=== PATIENT | female | born 1960 | race Caucasian/White ===

== ENCOUNTER 2016-12-07 21:33 | Inpatient (IN) | payer OTHER ==
[~2016-12-07] VITALS: Ht 170.2 cm; Wt 72.7 kg
[2016-12-07 21:35] VITALS: BP 125/74; PULSE 63; RESP 16; O2SAT 100
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
[2016-12-07 21:43] LABS: BASOPHILS % (AUTO) 0.3 % (0-3); EOSINOPHILS % (AUTO) 7.8 % (0-5); MONOCYTES % (AUTO) 8.1 % (4-12); Mean Corpuscular Hemoglobin 29.3 pg (27.0-35.0); Mean Corpuscular Volume 90.8 fL (81-100); NEUTROPHILS % (AUTO) 47.1 % (40-74); Platelet Count 276 bil/L (150-400)
[2016-12-07 22:00] LABS: INR 0.94 ratio
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
[2016-12-07 22:10] LABS: Magnesium 2.1 mg/dL (1.6-2.6)
[2016-12-07 22:36] LABS: Lipase 38 U/L (13-60)
[2016-12-07] MEDS: HYDROmorphone 1 mg/mL Inj IVPUSH PRN (23:43)
[2016-12-08] VITALS (13 sets, daily range): BP systolic 111–144; BP diastolic 55–85; PULSE 66–94; RESP 12–20; O2SAT 94–100
[2016-12-08] MEDS ORDERED: Albuterol HFA 60 Puff 8 Gm Inhaler INHALATION PRN (00:45)
[2016-12-08] MEDS ORDERED: Ondansetron 2 mg/mL 2 mL Inj IVPUSH PRN ×3 (00:45→17:25)
[2016-12-08] MEDS ORDERED: TdaP Vaccine 0.5 mL Inj IM ONE (00:50)
[2016-12-08] MEDS ORDERED: Albuterol HFA 200 Puff Inhaler (Vent Pts Only) INHALATION PRN (00:51)
[2016-12-08] MEDS: Lactated Ringer's 1,000 ML IV SCH ×3 (01:24→20:45)
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
--- NOTE | 2016-12-08 04:15 | NUR ---
Arrival to Room 1022 Patient arrived to room 1022 at 0102 via [facility] accompanied by MARIBEL Mcdermott from the ED and parents. Patient appears drowsy but easily aroused. Patient states pain at a 7/10 on pain scale. LR started at 100ml/hr. VSS. Patient informed that is out of surgery and will be transported to [facility] [place]. Assessment completed. No home meds to reconcile. Call light within reach. Care continues.
[2016-12-08] MEDS: HYDROmorphone 1 mg/mL Inj IVPUSH PRN ×2 (04:32→08:01)
[2016-12-08 04:50] LABS: APPEARANCE,URINE SLIGHTLY CLOUDY (CLEAR,HAZY); COLOR,URINE YELLOW (YELLOW); OCCULT BLOOD,URINE NEGATIVE (NEGATIVE); UROBILINOGEN,URINE NORMAL (NORMAL)
[2016-12-08] MEDS ORDERED: Albuterol 2.5 mg/3 mL Inhalation Solution NEB PRN (08:10)
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
[2016-12-08] MEDS ORDERED: Propofol 10,000 mCg/mL 20 mL Inj ONE (10:46)
[2016-12-08] MEDS ORDERED: fentaNYL-PF 50 mCg/mL 2 mL Inj ONE (10:46)
--- NOTE | 2016-12-08 12:10 | PCM.HPANE ---
Patient Data Surgeon Admitting Provider:Magdiel Madison DO Attending Provider:Magdiel Madison DO Primary Care Physician:[facility] Other Provider:Grayson Fitch Anesthesia Reason for Visit Fracture Left Tib Fib Ht/WT & BMI Height (Feet): 5 Height (Inches): 7.00 Weight (Kilograms): 72.720 Body Mass Index 25.16 Allergies Coded Allergies: No Known Allergies (Unverified , 12/08/16) Past Anesthesia History Anesthesia History: Denies:: Anesthesia Reactions Diabetes History Hx Diabetes?: No History History of ENT Problems?: No Denture Type: None Teeth Condition: Within Normal Limits Hx of Heart Problems?: No Cardiovascular History: Denies:: Cardiac Surgery Chest Pain Congestive Heart Failure Edema Heart Murmur Hypertension Irregular Heartbeat Pacemaker Thrombophlebitis Hx of Respiratory Problem?: Yes Respiratory History: Positive for:: Asthma Dyspnea Denies:: COPD Chest Surgery Emphysema Hemoptysis Pneumonia Tuberculosis Hx Neurologic Problems?: No Neurological History: Positive for:: Dizziness (tonight) Headaches Denies:: Alzheimer's Disease CVA Dementia Parkinson's Disease Seizures Hx of GI Problems?: No Gastrointestinal History: Denies:: Cirrhosis Diverticulitis Gall Bladder Disease Gastroesphageal Reflux Gastrointestinal Bleeding Heartburn Hepatitis Hiatal Hernia Liver Disease Rectal Bleeding Hx of Problems?: No Genitourinary History: Positive for:: Urinary Tract Infection Denies:: HX of Hemodialysis Kidney Stones HX of Peritoneal Dialysis: No Female Hx: Denies:: Currently Endometriosis Pelvic Inflammatory Problems with Breasts? Hx Musculoskeletal Problems?: No Musculoskeletal History: Positive for:: Musculoskeletal Trauma (12/07/16) Denies:: Back Injury Joint Replacement Hx of Psycho/Social Problems?: No Psycho Social History: Denies:: Anxiety Bipolar Disorder Hx Depression Suicide Attempt Hx Surgeries?: No Hx Any Other Health Problems?: No Other History: Positive for:: Hospitalization Denies:: Cancer Thyroid Disease History Blood Transfusions: Positive for:: Accept Blood Products? Denies:: Blood Transfuse Reaction Blood Transfusions Hx Diabetes: No Hx Alcohol Use: YesAlcoholic Drinks Per Day: 3-4 /weelHx Substance Use: No Smoking Status: Unknown if Ever Smoker Have You Smoked inLast 12 mo: No Stop/Bang Treated for Sleep Apnea?: No Do You Have a CPAP Machine?: No S-Snoring: Do You Snore Loudly: Yes T-Tired: feel tired, fatigued: Yes O-Obsered: Observed not breath: No P-Blood Pressure: treated: No B- Body Mass Index > 35 kg/m2: No A- Age over 50: Yes N- Neck Large Circumference: No G- Gender Male: No TIANNA Total Score: 2 TIANNA Category 1: Yes Risk Assessment Category Category 1A: Patient has history of documented sleep apnea, and HAS NOT received any narcotic, sedative or anesthesia administration during this stay. Category 1B: Patient has history of documented sleep apnea, and HAS received any narcotic , sedative or anesthesia administration during this stay Category 2: Patient has SUSPECTED Obstructive Sleep Apnea, and HAS received any narcotic , sedative or anesthesia administration during this stay. Category 3: Patient has SUSPECTED Obstructive Sleep Apnea and HAS NOT received narcotic, sedative or anesthesia administration during this stay. Category 4: Outpatient in Procedural Areas with known sleep apnea or who screen positive for High Risk via the STOP/BANG questionnaire. Exam Exam Vital Signs Vital Signs Date Time Temp Pulse Resp B/P Pulse Ox O2 Delivery O2 Flow Rate FiO2 12/08/16 11:41 36.4 18 113/71 97 Room Air 12/08/16 09:25 80 16 94 Room Air 12/08/16 05:22 36.6 71 18 117/67 100 Room Air General Appearance: Alert, Oriented X3, Cooperative, No Acute Distress HEENT/AIRWAY: MP 2 Lungs: Clear to Auscultation, Normal Air Movement Heart: Exam Unremarkable, Regular Rate/Rhythm, No Murmurs/Rubs/Gallops Meds/Labs/Diagnostics Admission Meds Current Medications Lactated Ringer's (Lr) 1,000 ml @ 100 mls/hr Q10H IV Last administered on 12/08t 01:24; Start 12/08/16 at 00:45 Labs Test 12/07/16 21:35 12/07/16 22:03 12/08/16 04:30 White Blood Count 5.8th/mm3 (3.8-10.1) Red Blood Count 3.93mil/mm3 (3.90-5.20) Hemoglobin 11.5g/dL (12.0-15.6) Hematocrit 35.7% (35.0-46.0) Mean Corpuscular Volume 90.8fL (81-100) Mean Corpuscular Hemoglobin 29.3pg (27.0-35.0) Mean Corpuscular Hemoglobin Concent 32.2% (32.0-37.0) Red Cell Distribution Width 12.9% (12.3-15.4) Platelet Count 276bil/L (150-400) Neutrophils (%) (Auto) 47.1% (40-74) Lymphocytes (%) (Auto) 36.5% (14-46) Monocytes (%) (Auto) 8.1% (4-12) Eosinophils (%) (Auto) 7.8% (0-5) Basophils (%) (Auto) 0.3% (0-3) Prothrombin Time 10.0sec (8.1-12.5) Prothromb Time International Ratio 0.94ratio Activated Partial Thromboplast Time 23.3sec (22.8-33.0) Sodium Level 142mEq/L (134-144) Potassium Level 3.5mEq/L (3.5-5.2) Chloride Level 103mEq/L (97-108) Carbon Dioxide Level 26mmol/L (18-29) Blood Urea Nitrogen 20mg/dL (6-24) Creatinine 1.00mg/dL (0.57-1.00) Estimat Glomerular Filtration Rate 83mL/min (>59) Glucose Level 109mg/dL (60-99) Calcium Level 9.6mg/dL (8.5-10.1) Magnesium Level 2.1mg/dL (1.6-2.6) Total Bilirubin 0.6mg/dL (0.0-1.2) Aspartate Amino Transf (AST/SGOT) 28U/L (0-50) Alanine Aminotransferase (ALT/SGPT) 24U/L (0-32) Alkaline Phosphatase 45U/L (25-150) Total Protein 6.9g/dL (6.4-8.4) Albumin 4.2g/dL (3.4-5.0) Lipase 38U/L (13-60) Alcohols < 10mg/dL (0-10) Hold Rivero Top Tube Received (Received) Urine Color Yellow (YELLOW) Urine Appearance Slightly cloudy Urine pH 6.0 (5.0-8.0) Urine Specific [place] 1.022 (1.003-1.035) Urine Protein Negativemg/dL (NEG,TRACE) Urine Glucose (UA) Negativemg/dL (NEGATIVE) Urine Ketones Negativemg/dL (NEGATIVE) Urine Occult Blood Negative (NEGATIVE) Urine Nitrite Positive (NEGATIVE) Urine Bilirubin Negative (NEGATIVE) Urine Urobilinogen Normalmg/dL (NORMAL) Urine Leukocyte Esterase Negative (NEGATIVE) Urine RBC 0-2/hpf (0-2) Urine WBC 0-5/hpf (0-5) Urine Epithelial Cells Occasional/hpf (NONE-MOD) Urine Crystals None seen (NONE SEEN) Urine Bacteria Many/hpf (NONE-FEW) Urine Hyaline Casts None/lpf (NONE) Urine Granular Casts None seen (NONE SEEN) Urine Waxy Casts None seen (NONE SEEN) Urine Red Blood Cell Casts None seen (NONE SEEN) Urine White Blood Cell Casts None seen (NONE SEEN) Urine Mucus None seen (None Seen) Urine Trichomonas None seen (NONE SEEN) Urine Yeast None (NONE SEEN) Urinalysis Comment Starch Plan Impression Patient chart reviewed, patient interviewed and anesthestic plan with risks, benefits, and alternatives discussed, and informed consent obtained. NPO per Anesth. Guidelines: Yes ASA Physical Status: ASA2 Mod Systemic Disease Anesthetic Plan: GA, SAB Bene/Risks/Altern/Consents: Yes HP Complete Prior to Induction: Yes Caterina Martino MD December 08, 2016 12:10
[2016-12-08] MEDS ORDERED: Lactated Ringer's 1,000 ML IV ONE ×2 (13:00→13:45)
[2016-12-08] MEDS ORDERED: CeFAZolin Inj 2 gm / 50mL D5W IV ONE (13:23)
[2016-12-08] MEDS ORDERED: Lactated Ringer's 1,000 ML IV SCH (15:01)
[2016-12-08] MEDS ORDERED: Lactated Ringer's 500 ML IV PRN (15:01)
[2016-12-08] MEDS ORDERED: MetoCLOpramide 5 mg/mL 2 mL Inj IVPUSH PRN (15:05)
[2016-12-08] MEDS ORDERED: Phenylephrine 10,000 mCg/mL Inj IVPUSH PRN (15:05)
[2016-12-08] MEDS ORDERED: Atropine 0.4 mg/mL Inj IVPUSH PRN (15:05)
[2016-12-08] MEDS ORDERED: EPHEDrine Sulfate 50 mg/mL Inj IVPUSH PRN (15:05)
[2016-12-08] MEDS ORDERED: HYDROmorphone 1 mg/mL Inj IVPUSH PRN ×2 (15:05→18:00)
[2016-12-08] MEDS ORDERED: Dexamethasone 4 mg/mL Inj IVPUSH PRN (15:05)
[2016-12-08] MEDS ORDERED: fentaNYL-PF 50 mCg/mL 2 mL Inj IVPUSH PRN (15:05)
[2016-12-08] MEDS ORDERED: Labetalol 5 mg/mL 4 mL Inj IV PRN (15:05)
--- NOTE | 2016-12-08 17:21 | PCM.ANEP1 ---
Post Anesthesia PACU Phase 1 Assessment Vital Signs Vital Signs Date Time Temp Pulse Resp B/P Pulse Ox O2 Delivery O2 Flow Rate FiO2 12/08/16 17:16 36.5 92 15 132/69 97 Room Air 12/08/16 11:41 36.4 18 113/71 97 Room Air 12/08/16 09:25 80 16 94 Room Air Anesthetic Administered: SAB Level of Alertness: Awake, talking PHELPS's with Equal Strength: No Pain: No Pain Scale Score: 7 Nausea or Vomiting: No CV Function & Hydration Stable: No Airway Device: Lungs: Clear to Auscultation, Normal Air Movement Dermatome Level: T10 (Umbilicus) PACU Phase 2 Assessment Complications: No Follow up Care: No Patient Instructions Provided: N/A Caterina Martino MD December 08, 2016 17:21
[2016-12-08] MEDS ORDERED: Polyethylene Glycol (PEG) 17 Gm Powder PO PRN (17:25)
[2016-12-08] MEDS ORDERED: Sodium Biphos-Phos 133 mL Enema RECTAL PRN (17:25)
[2016-12-08] MEDS ORDERED: diphenhydrAMINE 25 mg Capsule PO PRN (17:25)
[2016-12-08] MEDS ORDERED: Magnesium Hydroxide 10 mL Oral Concentration PO PRN (17:25)
[2016-12-08] MEDS: 0.9% Sodium Chloride 1,000 ML IV SCH (18:27)
[2016-12-08] MEDS: hydrOXYzine Pamoate 25 mg Capsule PO PRN ×2 (18:52→23:03)
--- NOTE | 2016-12-08 19:03 | NUR ---
Post op note- Patient arrived to room from PACU at 1820. Awake and talking. Left leg in cast and dressing dry and intact. Patient has good capillary refill and sensation in toes. Patient complaining of pain. Medicated with IV Dilaudid and Vistaril. Cont. to monitor for pain relief.
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
[2016-12-08] MEDS: Senna-Docusate 8.6-50 mg Tablet PO SCH (20:48)
[2016-12-08] MEDS: oxyCODONE-Acetamin 5-325 mg Tablet PO PRN (23:04)
[2016-12-08] MEDS: CeFAZolin Inj 2 GM in IV Premix 1 EACH IV SCH (23:10)
[2016-12-08] MEDS: Sodium Chloride LOK Flush 10 mL Syringe IV SCH (23:33)
--- NOTE | 2016-12-08 23:50 | NUR ---
Pain On initial assessment, patient stated pain at a 10/10 on pain scale. Toradol 30mg IVP administered. Patient is able to wiggle toes. VSS. At 2300, patient requested something to eat. TV dinner brought in. Patient appears passive in mood. Call light within reach. Care continues.
[2016-12-09 01:05] VITALS: BP 111/72; PULSE 105; RESP 18; O2SAT 95
[2016-12-09] MEDS: 0.9% Sodium Chloride 1,000 ML IV SCH ×3 (03:23→23:05)
[2016-12-09] MEDS: CeFAZolin Inj 2 GM in IV Premix 1 EACH IV SCH (05:49)
[2016-12-09 06:20] VITALS: BP 116/74; PULSE 90; RESP 16; O2SAT 98
[2016-12-09] MEDS: hydrOXYzine Pamoate 25 mg Capsule PO PRN (06:23)
[2016-12-09] MEDS: oxyCODONE-Acetamin 5-325 mg Tablet PO PRN ×4 (06:24→18:24)
[2016-12-09] MEDS: Lactated Ringer's 1,000 ML IV SCH ×2 (06:27→16:45)
[2016-12-09 06:48] LABS: BASOPHILS % (AUTO) 0.4 % (0-3); EOSINOPHILS % (AUTO) 3.4 % (0-5); MONOCYTES % (AUTO) 11.3 % (4-12); Mean Corpuscular Hemoglobin 29.6 pg (27.0-35.0); Mean Corpuscular Volume 91.9 fL (81-100); NEUTROPHILS % (AUTO) 61.7 % (40-74); Platelet Count 195 bil/L (150-400)
[2016-12-09] MEDS: Sodium Chloride LOK Flush 10 mL Syringe IV SCH ×3 (08:48→23:34)
[2016-12-09] MEDS: Senna-Docusate 8.6-50 mg Tablet PO SCH ×2 (08:53→19:43)
[2016-12-09 09:07] VITALS: BP 129/71; PULSE 104; RESP 20; O2SAT 94
--- NOTE | 2016-12-09 10:22 | PCM.PNORTH ---
Subjective Date of Service: December 09, 2016 Visit Information: Reason for Visit Fracture Left Tib Fib Surgery/Surgery Date Post-Op Day # 1 Date of Admission: December 07, 2016 at 23:14 Hospital Day # Subjective Patient seems somnolent and is not very talkative. She states she is having pain. She states she has been elevating her leg "and it still hurts." She denies numbness or tingling. Physical therapy states she had difficulty with ambulation due to right shoulder and clavicle pain. She states it is the limiting factor in her ambulation with crutches at this time. Postop General: No Complaints, No Shortness of Breath, No Chest Pain, Good Appetite Pain Management: PO, IV Push Objective Exam Objective Patient laying in bed with leg elevated. Patient seems very somnolent and is not actively participating in conversation. Vital Signs and I/O Vital Sign - Last Date Time Temp Pulse Resp B/P Pulse Ox O2 Delivery O2 Flow Rate FiO2 12/09/16 09:07 37.2 104 20 129/71 94 Room Air Intake and Output 12/08/16 12/08/16 12/09/16 Cumulative From/Thru 15:00 23:00 07:00 12/07/16 21:35 - 12/09/16 06:47 Intake Total 1400 ml 808 ml 1837 ml 4508 ml Output Total 960 ml 625 ml 1985 ml Balance 1400 ml -152 ml 1212 ml 2523 ml Intake Oral 0 ml 600 ml 600 ml IV Total 1400 ml 808 ml 1237 ml 3908 ml Output Urine Total 710 ml 625 ml 1735 ml Estimated Blood Loss 250 ml 250 ml # Voids 1 # Bowel Movements 0 Lab & Micro Results Laboratory Tests Test 12/09/16 06:25 White Blood Count 7.6th/mm3 (3.8-10.1) Red Blood Count 3.21mil/mm3 (3.90-5.20) Hemoglobin 9.5g/dL (12.0-15.6) Hematocrit 29.5% (35.0-46.0) Mean Corpuscular Volume 91.9fL (81-100) Mean Corpuscular Hemoglobin 29.6pg (27.0-35.0) Mean Corpuscular Hemoglobin Concent 32.2% (32.0-37.0) Red Cell Distribution Width 12.9% (12.3-15.4) Platelet Count 195bil/L (150-400) Neutrophils (%) (Auto) 61.7% (40-74) Lymphocytes (%) (Auto) 22.3% (14-46) Monocytes (%) (Auto) 11.3% (4-12) Eosinophils (%) (Auto) 3.4% (0-5) Basophils (%) (Auto) 0.4% (0-3) Sodium Level 140mEq/L (134-144) Potassium Level 4.5mEq/L (3.5-5.2) Chloride Level 102mEq/L (97-108) Carbon Dioxide Level 23mmol/L (18-29) Blood Urea Nitrogen 14mg/dL (6-24) Creatinine 0.76mg/dL (0.57-1.00) Estimat Glomerular Filtration Rate 114mL/min (>59) Glucose Level 112mg/dL (60-99) Calcium Level 8.2mg/dL (8.5-10.1) Result Diagram: 12/09/1662412/09/16624 General Appearance: Alert, Oriented X3, Cooperative, No Acute Distress Extremities: Warm Postop Sensory Motor: Distal Motor Intact, Movement in Toes, Distal Sensation Intact, NVI Distally SURGICAL WOUND : Wound Location/Description Splint clean, dry and intact. Incision General Appearance: No Direct Observation Activity: Ambulate with PT (NWB c LLE; utilize crutches) Assessment & Plan Impression POD#1 1. Left distal tibia open reduction and internal fixation. 2. Left midshaft tibia intramedullary nail. 3. Left distal fibula open reduction and internal fixation. Problems: Plan Patient seems very out of it and seems to be struggling to stay awake. I recommend use of oral pain medications - preferably Tylenol instead of non- narcotic however patient may have a lot of pain post-operatively due to the complexity of the fracture. Leg should be elevate frequently and ice should be applied often as she will have a lot of post-operative swelling. Weightbearing: Nonweightbearing on the left lower extremity; utilizing crutches or walker DVT prophylaxis: Lovenox 40 mg daily 2 weeks followed by aspirin 325 mg twice a day 4 weeks, for a total of 6 weeks of DVT prophylaxis Physical therapy for transfers, progressive ambulation, strengthening Wound care: Splint should remain on and intact all times. Do not remove splint. Patient will be transitioned to a cast at 2 weeks Analgesia: Oral pain management Discharge plan: Discharge home in 1-2 days; predict patient will likely need home health services but will reassess tomorrow. Follow-up plan: In 2 weeks at [facility] with HAKAN for wound check and at [address] Madison with x-rays VTE Prophylaxis: Sub-Q Enoxaparin Leeanne Smith PA-C December 09, 2016 10:22
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
--- NOTE | 2016-12-09 14:04 | DRSVH ---
PROCEDURE: X-RAY RIGHT SHOULDER, MINIMUM TWO VIEWS ([id number]) INDICATIONS: R shoulder pain TECHNIQUE: 3 views of the shoulder were acquired. COMPARISON: [facility], CR, XR CLAVICLE COMP RT, 12/09/2016, 10:53. FINDINGS: Bones: No fractures or dislocations. No suspicious bony lesions. Visualized ribs appear intact. Soft tissues: No suspicious soft tissue calcifications. Mild soft tissue swelling. IMPRESSION: Minimal lateral soft tissue swelling otherwise normal right shoulder. Dictated by: Remigio Sethi RRA Interpreted: Akilah Tong MD on 12/09/2016 at 14:04 Transcribed by: LUIS on 12/09/2016 at 14:04 Approved by: Akilah Tong MD, PhD on 12/09/2016 at 14:52
--- NOTE | 2016-12-09 14:04 | DRSVH ---
PROCEDURE: X-RAY RIGHT CLAVICLE, COMPLETE ([id number]) INDICATIONS: R shoulder pain TECHNIQUE: 2 views of the clavicle were acquired. COMPARISON: None. FINDINGS: Bones: No fractures or dislocations. No suspicious bony lesions. Soft tissues: No suspicious soft tissue calcifications. Mild lateral soft tissue swelling. IMPRESSION: Minimal lateral soft tissue swelling otherwise normal exam. Dictated by: Remigio Sethi [facility] Interpreted: Akilah Tong MD on 12/09/2016 at 14:02 Transcribed by: LUIS on 12/09/2016 at 14:03 Approved by: Akilah Tong MD, PhD on 12/09/2016 at 14:52
--- NOTE | 2016-12-09 15:04 | NUR ---
Evaluation completed. Please go to "Notes" then click on "Assessments and Notes" (bottom left corner of screen). Then select appropriate discipline tab on top of screen.
[2016-12-09 19:12] VITALS: BP 117/68; PULSE 96; RESP 18; O2SAT 94
[2016-12-09 21:00] VITALS: BP 95/59; PULSE 97; RESP 16; O2SAT 94
[2016-12-10 00:45] VITALS: BP 118/74; PULSE 88; RESP 16; O2SAT 99
[2016-12-10 00:50] VITALS: PULSE 80; RESP 16; O2SAT 96
[2016-12-10] MEDS: Lactated Ringer's 1,000 ML IV SCH ×2 (02:45→09:03)
[2016-12-10] MEDS: hydrOXYzine Pamoate 25 mg Capsule PO PRN ×3 (02:49→13:18)
[2016-12-10] MEDS: oxyCODONE-Acetamin 5-325 mg Tablet PO PRN ×3 (02:51→13:18)
--- NOTE | 2016-12-10 03:01 | NUR ---
Pain/ BM Pt. was sleeping throughout shift. Until 229, when ambulating to bathroom pt. reported pain luiz severely. 2 tab Percocet PO and 1 tab Vistaril PO given. Pt. reports having an extra large BM while on toilet. Will continue to monitor.
[2016-12-10 05:20] VITALS: BP 102/63; PULSE 99; RESP 16; O2SAT 93
[2016-12-10 07:42] VITALS: PULSE 95; RESP 16; O2SAT 95
[2016-12-10] MEDS: Sodium Chloride LOK Flush 10 mL Syringe IV SCH (08:06)
[2016-12-10] MEDS: Senna-Docusate 8.6-50 mg Tablet PO SCH (08:30)
[2016-12-10] MEDS: 0.9% Sodium Chloride 1,000 ML IV SCH (09:03)
--- NOTE | 2016-12-10 09:53 | PCM.PNORTH ---
Subjective Date of Service: December 10, 2016 Visit Information: Reason for Visit Fracture Left Tib Fib Surgery/Surgery Date Post-Op Day # Date of Admission: December 07, 2016 at 23:14 Hospital Day # Subjective Status post day #2 left distal tibia ORIF, mid shaft IM nail left tibia, distal fibula ORIF on the left. Patient states that she is doing well and ready to go home. She states her pain is well-controlled and she has good help on. States she did really well with physical therapy and would like to have some crutches to go home with. Postop General: No Complaints, No Shortness of Breath, No Chest Pain, Good Appetite Pain Management: PO, IV Push Objective Exam Objective Patient is alert and oriented 3. Answering questions appropriately. Patient is sitting up in the bed and not in acute distress today. Dressing and splint are clean dry and intact. Calf is soft and nontender as far as can be palpated on the superior portion. Sensation and pulses intact, patient able to wiggle toes. Vital Signs and I/O Vital Sign - Last Date Time Temp Pulse Resp B/P Pulse Ox O2 Delivery O2 Flow Rate FiO2 12/10/16 07:42 95 16 95 Room Air 12/10/16 05:20 37.3 102/63 Intake and Output 12/09/16 12/09/16 12/10/16 Cumulative From/Thru 15:00 23:00 07:00 12/07/16 21:35 - 12/10/16 06:08 Intake Total 850 ml 1000 ml 6358 ml Output Total 800 ml 1500 ml 4285 ml Balance 50 ml -500 ml 2073 ml Intake Oral 850 ml 1000 ml 2450 ml IV Total 3908 ml Output Urine Total 800 ml 1500 ml 4035 ml Estimated Blood Loss 250 ml # Voids 1 # Bowel Movements 1 1 Result Diagram: 12/09/16 0625 12/09/16 0625 SURGICAL WOUND : Incision General Appearance: No Direct Observation Activity: Ambulate with PT (NWB c LLE; utilize crutches) Assessment & Plan Impression Status post day #2 left tibia fracture ORIF via nail and distal tibia ORIF with distal fibula ORIF as well. Patient stable and ready to be discharged to home. Problems: Plan Patient will remain nonweightbearing on the left lower leg. Discharged with crutches that she will use for the next 6 weeks. DVT prophylaxis: Lovenox 40 mg daily 2 weeks followed by aspirin 325 mg twice a day 4 weeks, for a total of 6 weeks of DVT prophylaxis Wound care: Splint should remain on and intact all times. Do not remove splint , keep clean and dry. Patient will be transitioned to a cast at 2 weeks Analgesia: Patient will be discharged with Vistaril as well as Percocet 5/325 mg tablets for pain. Patient will be discharged to home today. Patient has help from family and will stay on her parents first floor. Follow-up plan: In 2 weeks at [facility] with HAKAN for wound check and at [address] Madison with x-rays VTE Prophylaxis: Sub-Q Enoxaparin Abdoulaye Murguia PA-C December 10, 2016 09:53
--- NOTE | 2016-12-10 09:54 | PCM.DIORTH ---
Ortho Discharge Instruction Date of Service: December 10, 2016 Dates of Hospitalization Date of Hospital Admission December 07, 2016 at 23:14 Providers Admitting Physician: Magdiel Madison DO Primary Care Physician: Ranjana Horner-Amparo Zavala Attending Physician: Magdiel Madison DO Diet Discharge Diet: No restrictions Activity Discharge Activity-General: Try not to overdue Left Lower Extremity: Non-weight Bearing Discharge Assist Device: Crutches Dressing and Incisional Care Discharge Dressing Care: Keep dressing clean, dry & intact Additional Instructions Discharge Instructions Patient will remain nonweightbearing on the left lower leg. Discharged with crutches that she will use for the next 6 weeks. DVT prophylaxis: Lovenox 40 mg daily 2 weeks followed by aspirin 325 mg twice a day 4 weeks, for a total of 6 weeks of DVT prophylaxis Wound care: Splint should remain on and intact all times. Do not remove splint , keep clean and dry. Patient will be transitioned to a cast at 2 weeks Analgesia: Patient will be discharged with Vistaril as well as Percocet 5/325 mg tablets for pain. Patient will be discharged to home today. Patient has help from family and will stay on her parents first floor. Follow-up plan: In 2 weeks at [facility] with HAKAN for wound check and at [address] Madison with x-rays Abdoulaye Murguia PA-C December 10, 2016 09:54
[2016-12-10] MEDS ORDERED: HYDR-3797 PO (09:56)
[2016-12-10] MEDS ORDERED: OXYC1TAB24 PO (09:56)
[2016-12-10] MEDS ORDERED: ENOX40DI8 SUBQ (09:56)
[2016-12-10] MEDS ORDERED: DOCU-41 PO (09:56)
--- NOTE | 2016-12-10 09:59 | PCM.DC.ORT ---
Discharge Summary Date of Service: December 10, 2016 Date of Hospital Admission: December 07, 2016 at 23:14 Date of Surgery: December 08, 2016 Date of Discharge: December 10, 2016 Reason for Hospitalization: Left tibia fracture, multiple. Left fibula fracture. Procedures Performed: Left distal tibia ORIF Left tibia IM nail. Distal fibula ORIF, left. Hospital Course: Patient presented to [facility] surgical suite for the procedure of left tibia ORIF, tibia IM nail, and fibula ORIF by Dr Magdiel Madison on 2016. Patient was prepped for surgery and the procedure was performed successfully, patient was discharged to PACU under stable condition, tolerated the procedure well. Once stabilized in PACU and pain well controlled, patient was admitted to the hospital floor for observation, pain control, and progression with physical therapy. The first 1-2 days the patient was able to resume a regular diet, void on their own, not having any problems with nausea or vomiting. The patient did not have any adverse falls, reactions, or events were all in the hospital. The patient began working with physical therapy on day one then progressed quite well with reasonable pain control. On day #2 the patient was able to ambulate safely on their own, and pain was controlled sufficiently to be discharged to home. We will utilize aspirin Lovenox 40 mg subcutaneous daily for 2 weeks, then aspirin 325 mg by mouth twice a day for 4 weeks for DVT prophylaxis. The patient was discharged to home under stable condition with plan to follow- up with patient at 2 weeks for a postoperative appointment. Orthopedic Follow up Plan: In Two Weeks in my clinic Discharge Instructions: Patient will remain nonweightbearing on the left lower leg. Discharged with crutches that she will use for the next 6 weeks. DVT prophylaxis: Lovenox 40 mg daily 2 weeks followed by aspirin 325 mg twice a day 4 weeks, for a total of 6 weeks of DVT prophylaxis Wound care: Splint should remain on and intact all times. Do not remove splint , keep clean and dry. Patient will be transitioned to a cast at 2 weeks Analgesia: Patient will be discharged with Vistaril as well as Percocet 5/325 mg tablets for pain. Patient will be discharged to home today. Patient has help from family and will stay on her parents first floor. Follow-up plan: In 2 weeks at [facility] with HAKAN for wound check and at [address] Madison with x-rays Docusate Sodium (Colace) 100 Mg Capsule 100 MG PO BID Enoxaparin Sodium (Enoxaparin Sodium) 40 Mg/0.4 Ml Syringe 40 MG SUBQ Q24 Hydroxyzine Pamoate (HydrOXYzine Pamoate) 25 Mg Capsule 25 MG PO Q4H PRN PRN For Spasm and/or Restlessness oxyCODONE-Acetaminophen 5-325 mg (oxyCODONE-Acetaminophen 5-325 mg) 1 Each Tablet 1-2 TAB PO Q4H PRN PRN For Pain Abdoulaye Murguia PA-C December 10, 2016 09:59
--- NOTE | 2016-12-10 11:28 | NUR ---
Social Work- Readiness for Discharge Data: EMR reviewed. Pt is on day 3 of hospitalization for fracture left tib fib per H&P. Pt has been cleared by Ortho, pt is medically stable to discharge today. PT has seen pt, pt successfully navigated stairs and 30 feet with crutches. OT has cleared pt for home. Pt to obtain outpt services for further therapies. Pt will need orders for crutches at discharge. Ortho has provided order for pt's crutches, [employer] has faxed orders to [employer]. SW met with pt at bedside regarding discharge. Pt agreeable to discharge today. Pt confirms that her parents are providing transportation to their home in [facility] [place] [facility] and they would be able to car pick up driver crutches from the [employer] at discharge. Pt to discharge home with parents via POV, no discharge needs from SW identified at this time. SW will continue to follow if needs arise. Assessment: Pt for whom outpt therapies is medically indicated. Plan: Pt to discharge home with parents to transport via POV. No discharge needs identified from SW at this time. SW will continue to follow if needs arise. BENITA Lay
--- NOTE | 2016-12-10 13:36 | NUR ---
Social Work- Discharge Data: EMR reviewed. Pt discharged today. Pt to obtain crutches through DME provider, [place] [facility] [place] Pt to receive outpt therapies. Pt discharged to her parent's home [place] [facility] with her parents transporting via POV. No discharge needs identified. Assessment: Pt who will receive outpt therapies Plan: Pt to receive outpt therapies. Pt discharged to her parent's home in [place] [facility] with her parents transporting via POV. No discharge needs identified. BENITA Lay
--- NOTE | 2016-12-10 14:27 | NUR ---
discharged home with father, he has been trained in giving Lovenox injections and has been giving them to her . she will have f/u appts in 2 weeks and [address] Madison. Has Rx for Percocet and [facility] Vistaril and [place]. Pt eating/drinking/voiding without problems. Maintains NWB well to LLE
== END 2016-12-10 13:23 | disposition home or self-care (01) | DRG 494 ==
LOC: SED 21:33 → OSC 23:14
PROVIDERS: ADMIT Orthopaedic Surgery; ATTEND Orthopaedic Surgery
PROC: 2W3MX1Z Immobilization of Left Lower Extremity using Splint (ICD-10-PCS; principal; 2016-12-07)
PROC: 0QSH04Z Reposition Left Tibia with Internal Fixation Device, Open Approach (ICD-10-PCS; 2016-12-08)
PROC: 0QSH06Z Reposition Left Tibia with Intramedullary Internal Fixation Device, Open Approach (ICD-10-PCS; 2016-12-08)
PROC: 0QSK04Z Reposition Left Fibula with Internal Fixation Device, Open Approach (ICD-10-PCS; 2016-12-08)
DX: S82.62XA Displaced fracture of lateral malleolus of left fibula, initial encounter for closed fracture (principal); J45.909 Unspecified asthma, uncomplicated; S82.392A Other fracture of lower end of left tibia, initial encounter for closed fracture; V23.5XXA Motorcycle passenger injured in collision with car, pick-up truck or van in traffic accident, initial encounter; Y92.488 Other paved roadways as the place of occurrence of the external cause; Z79.51 Long term (current) use of inhaled steroids

== ENCOUNTER 2017-01-12 06:31 | Emergency (ER) | payer OTHER ==
[~2017-01-12] VITALS: Ht 170.2 cm; Wt 72.7 kg
[~2017-01-12 06:31] MED LIST: DOCU-41 PO; ENOX40DI8 SUBQ; HYDR-3797 PO; OXYC1TAB24 PO
[2017-01-12 06:32] VITALS: PULSE 105; RESP 16; O2SAT 99
--- NOTE | 2017-01-12 06:43 | ED.REPORT ---
HPI-General Illness Date of Service Jan 12, 2017 ED Provider: Vitaly Hinson MD Patient is a 56 year old female who presents to the ED complaining of non- vertiginous dizziness onset 0200 this morning upon waking. Associated symptoms include nausea,intermittent hot and cold flashes, and mild SOB. She denies fever , vomiting, pleuritic pain, or any other symptoms. She broke her L leg one month ago and is concerned about blood clots. Per spouse, she has been taking Percocet, Vistaril, and Aspirin daily. Patient is a very vague historian, refuses to open eyes or make eye contact during history/ examination and states "look it up in my chart" questioned about past medical history. None of her symptoms are particularly specific and she refuses to elaborate on details of her complaint today. Nursing Notes Stated Complaint: HOT AND COLD FLASHES Chief Complaint: General Complaint Nursing Notes Reviewed: Yes Allergies: Coded Allergies: No Known Allergies (Unverified , 01/12/17) Scheduled Docusate Sodium (Colace) 100 Mg Capsule 100 MG PO BID Enoxaparin Sodium (Enoxaparin Sodium) 40 Mg/0.4 Ml Syringe 40 MG SUBQ Q24 Scheduled PRN Hydroxyzine Pamoate (HydrOXYzine Pamoate) 25 Mg Capsule 25 MG PO Q4H PRN PRN For Spasm and/or Restlessness oxyCODONE-Acetaminophen 5-325 mg (oxyCODONE-Acetaminophen 5-325 mg) 1 Each Tablet 1-2 TAB PO Q4H PRN PRN For Pain General Time Seen by MD: 06:39 Chief Complaint Dizziness Hx Obtained From: Patient, Spouse Arrived By: Wheelchair Sudden in Onset?: Yes Onset Occurred: 1 - 4 hours ago Symptom Duration: Since onset Recent Healthcare: Recent doctor visit, Previous surgery Past Medical History Past Medical History Asthma - occasional albuterol use Arthritis Past Surgical History None reported Smoking History Unknown if Ever Smoker Social History Alcohol Use: "Social" Ambulatory Status Independent Review of Systems +hot and cold flashes Full Review of Systems Constitutional: Denies: Fever Respiratory: Reports: Shortness of breath, Denies: Pleuritic pain GI: Reports: Nausea, Denies: Vomiting Neurologic: Reports: Dizziness Complete sys rev & neg: except as marked. Physical Exam Vital Signs Vital Signs Date Time Temp Pulse Resp B/P Pulse Ox O2 Delivery O2 Flow Rate FiO2 01/12/17 09:49 92 20 102/60 99 Room Air 01/12/17 09:00 92 13 106/54 98 Room Air 01/12/17 08:00 91 12 104/58 99 Room Air 01/12/17 06:32 36.2 105 16 99 Initial VS: Reviewed Respiratory: Breath sounds normal, Clear to auscultation, No respiratory distress Cardiovascular: Regular rate & rhythm, Heart sounds normal, Intact distal pulses Abdomen / GI: Soft, Non-tender, No guarding, No rebound, No distention Skin: Warm, Dry General/Constitutional: Awake, Alert, Well developed Head / Eyes: Atraumatic, Normocephalic, EOMI Pupils 2mm Mouth: Positive: Mucous membranes dry Neck: Supple, No meningismus No neck stiffness Lower Extremity / Pelvis / MS: Neurologic intact, Vascular intact LLE in cast RLE atraumatic Good cap refill to toes bilat Neurologic: Oriented X3 No lateralizing neurological findings Interpretation & Diagnostics Lab Results Interpretation Result Diagram: 01/12/17 0720 01/12/17 0720 Test 01/12/17 07:20 White Blood Count 5.6th/mm3 (3.8-10.1) Red Blood Count 3.70mil/mm3 (3.90-5.20) Hemoglobin 10.4g/dL (12.0-15.6) Hematocrit 32.7% (35.0-46.0) Mean Corpuscular Volume 88.4fL (81-100) Mean Corpuscular Hemoglobin 28.1pg (27.0-35.0) Mean Corpuscular Hemoglobin Concent 31.8% (32.0-37.0) Red Cell Distribution Width 13.0% (12.3-15.4) Platelet Count 218bil/L (150-400) Neutrophils (%) (Auto) 64.9% (40-74) Lymphocytes (%) (Auto) 21.6% (14-46) Monocytes (%) (Auto) 7.5% (4-12) Eosinophils (%) (Auto) 5.5% (0-5) Basophils (%) (Auto) 0.5% (0-3) Sodium Level 140mEq/L (134-144) Potassium Level 3.8mEq/L (3.5-5.2) Chloride Level 102mEq/L (97-108) Carbon Dioxide Level 22mmol/L (18-29) Blood Urea Nitrogen 18mg/dL (6-24) Creatinine 0.73mg/dL (0.57-1.00) Estimat Glomerular Filtration Rate 119mL/min (>59) Glucose Level 115mg/dL (60-99) Calcium Level 9.4mg/dL (8.5-10.1) Magnesium Level 1.8mg/dL (1.6-2.6) Total Bilirubin 0.6mg/dL (0.0-1.2) Aspartate Amino Transf (AST/SGOT) 23U/L (0-50) Alanine Aminotransferase (ALT/SGPT) 18U/L (0-32) Alkaline Phosphatase 62U/L (25-150) Troponin T < 0.010ug/L (0.0-0.011) Total Protein 6.8g/dL (6.4-8.4) Albumin 3.8g/dL (3.4-5.0) Hold Rivero Top Tube Received (Received) ECG Interpretation ECG Interpretation: sinus 80 nL axis and interval no st elevation or t-wave abnl no sig change Time: 08:00 Interpreted by: ED physician CT Chest Interpretation IMPRESSION: 1. No visualized pulmonary embolism. 2. Dependent changes and trace effusion in the left base. 3. Prominent hiatal hernia. Dictated by: Valeria Dumas M.D. on 01/12/2017 at 9:37 Approved by: Valeria Dumas M.D. on 01/12/2017 at 9:38 Study type: CT pulm angiogram Interpretation / Wet Read by: Interpret - Radiologist Re-Eval/Medical Decision Med Decision/Clinical Course Patient is a 56 year old female who presents to the ED complaining of non- vertiginous dizziness onset 0200 this morning upon waking. Associated symptoms include nausea,intermittent hot and cold flashes, and mild SOB. She denies fever , vomiting, pleuritic pain, or any other symptoms. She broke her L leg one month ago and is concerned about blood clots. Per spouse, she has been taking Percocet, Vistaril, and Aspirin daily. Patient is a very vague historian, refuses to open eyes or make eye contact during history/ examination and states "look it up in my chart" questioned about past medical history. None of her symptoms are particularly specific and she refuses to elaborate on details of her complaint today. Here in the emergency department the patient is afebrile, hemodynamically stable and in no apparent distress. Examination is as documented above. EKG was obtained as documented above and was unremarkable. CBC demonstrated no leukocytosis and stable hematocrit. CMP was unremarkable and troponin was negative. Patient's presentation is extremely vague. I see no evidence of lateralizing neurologic findings in her dizziness is not vertiginous. Nothing in her presentation is strokelike my assessment at this time. She has no significant electrolyte abnormalities or acute anemia suggestive of blood loss. Abdominal examination is benign. She is neurovascularly intact in all extremities. Presence of DVT is difficult to assess for as she has a cast on her left leg. Her presentation is not entirely convincing of pulmonary embolism however I opted to proceed with a CT angiogram of her chest in order to definitively rule this out. No pulmonary embolism was demonstrated At this time, patient remains with stable vital signs, comfortable, no apparent distress with reassuring workup as documented above. Of note she did appear dehydrated with dry mucous membranes and reported feeling quite a bit better after receiving a liter of normal saline. At this time I feel that she is appropriate for discharge with instructions to continue oral hydration and limit use of narcotic pain medication as this can also cause general fatigue and sometimes lightheadedness. She will follow up closely with her primary care physician. Prior to discharge follow-up and return precautions were reviewed in detail with the patient who verbalized understanding and agreement with the plan. The patient was discharged in stable condition. Time of Eval: 09:43 Re-Evaluation/Progress Note: Discussed plan for discharge. Patient understands and agrees with plan. All questions addressed at this time. Counseled Regarding: Diagnosis, Lab results, Need for follow-up, When/why to return to ED Discharge & Departure Primary Impression: Lightheadedness Additional Impressions: Dehydration Ankle fracture, left Encounter type: initial encounter Fracture type: closed Qualified Code: S82.892A - Other fracture of left lower leg, initial encounter for closed fracture Hiatal hernia Disposition: Home Discharge Condition All VS Reviewed: Yes Condition: Stable Additional Instructions: Thank you for seeking care at the emergency room. It is difficult for us to make definitive diagnoses in the ED but we believe that you are experiencing mild dehydration. You also have a hiatal hernia, you should follow up about this with your regular doctor if you ever have abdominal pain or acid reflux Our primary goal today in the ED was to evaluate you for any life-threatening conditions. Your evaluation was reassuring. You should follow-up with your primary doctor in the next week. You should return to the ED immediately if you develop any new or worsening symptoms, fevers, vomiting, cough, shortness of breath, chest pain, lightheadedness, weakness or any other concerning signs or symptoms. Thank you for letting us partake in your care today. [facility] Scribe Attestation Portions of this note were transcribed by Nataly Juarez. I, Dr. Hinson personally performed the history, physical exam and medical decision-making; I reviewed and confirmed the accuracy of the information in the transcribed note. Signed by: Nataly Juarez 01/12/17, 0945 copies to: [facility] Beck O MD Jan 12, 2017 06:43 NATALY JUAREZ Jan 12, 2017 06:59
[2017-01-12] MEDS ORDERED: 0.9% Sodium Chloride 1,000 ML IV ONE (07:09)
[2017-01-12 07:36] LABS: BASOPHILS % (AUTO) 0.5 % (0-3); EOSINOPHILS % (AUTO) 5.5 % (0-5); MONOCYTES % (AUTO) 7.5 % (4-12); Mean Corpuscular Hemoglobin 28.1 pg (27.0-35.0); Mean Corpuscular Volume 88.4 fL (81-100); NEUTROPHILS % (AUTO) 64.9 % (40-74); Platelet Count 218 bil/L (150-400)
[2017-01-12 08:00] VITALS: BP 104/58; PULSE 91; RESP 12; O2SAT 99
[2017-01-12 08:23] LABS: Magnesium 1.8 mg/dL (1.6-2.6)
[2017-01-12 08:25] LABS: TROPONIN T < 0.010 ug/L (0.0-0.011)
[2017-01-12 09:00] VITALS: BP 106/54; PULSE 92; RESP 13; O2SAT 98
--- NOTE | 2017-01-12 09:40 | DRSVH ---
PROCEDURE: CT ANGIO CHEST PULMONARY EMBOLISM ([id number]) INDICATIONS: cp, recent surgery TECHNIQUE: After the administration of intravenous contrast, 2 mm thick sections acquired from the pulmonary api onur to the posterior costophrenic angles. 3-dimensional maximum intensity projection (MIP) coronal a nd sagittal reformats were then acquired through the thorax. For radiation dose reduction, the follo wing was used: automated exposure control, adjustment of mA and/or kV according to patient size. COMPARISON: None. FINDINGS: Image quality: Excellent. Pulmonary arteries: Pulmonary arteries are normal in size, and demonstrate no intraluminal filling d efects to suggest central pulmonary embolism. Lungs and pleura: Mild dependent changes and trace effusion are present within the left base. Mediastinum: Heart size is normal, without pericardial effusion. No mediastinal or hilar adenopathy . Thoracic aorta is normal in caliber and enhancement. Esophagus is normal in caliber, prominent hi atal hernia. Bones and chest wall: No suspicious bony lesions. Ribs and thoracic spine appear intact throughout. Thyroid gland is unremarkable. No axillary or supraclavicular adenopathy. Abdomen: Visualized upper abdominal solid organs appear normal in the early arterial phase of enhanc ement. IMPRESSION: 1. No visualized pulmonary embolism. 2. Dependent changes and trace effusion in the left base. 3. Prominent hiatal hernia. Dictated by: Valeria Dumas M.D. on 01/12/2017 at 9:37 Approved by: Valeria Dumas M.D. on 01/12/2017 at 9:38
[2017-01-12 09:49] VITALS: BP 102/60; PULSE 92; RESP 20; O2SAT 99
== END 2017-01-12 09:50 | disposition home or self-care (01) ==
LOC: SED 06:31
DX: S82.892A Other fracture of left lower leg, initial encounter for closed fracture (principal); X58.XXXA Exposure to other specified factors, initial encounter; Y93.89 Activity, other specified; Y92.89 Other specified places as the place of occurrence of the external cause; Y99.8 Other external cause status; K44.9 Diaphragmatic hernia without obstruction or gangrene; E86.0 Dehydration; R42 Dizziness and giddiness; J45.909 Unspecified asthma, uncomplicated
CPT/HCPCS: 36415; 71275; 80053; 83735; 84484; 85025; 93005; 96360; 99285; J7030; Q9967